=== PATIENT | male | born 1990 | race Caucasian/White ===

== ENCOUNTER 2016-11-11 18:21 | Emergency (ER) | payer OTHER ==
[2016-11-11 18:34] VITALS: TEMP 97.1
--- NOTE | 2016-11-11 21:17 | ED ---
General Adult HPI - General Chief complaint: Chest Pain Stated complaint: chest pain Time Seen by Provider: 11/11/16 21:10 Source: patient, RN notes reviewed Mode of arrival: wheelchair Limitations: no limitations - History of Present Illness Initial comments: This a 26-year-old male presents emergency Department chief complaint of right upper quadrant abdominal pain, right-sided chest pain. Patient states it started earlier today after drinking some milk. Patient states he is nauseated and has been vomiting. Patient states his pain is very severe his right side. Patient states it radiates to his shoulder region. Patient denies fever, chills. Patient states he has normal cardiac issues. Patient states he is a daily smoker. Patient denies any shortness breath or pain with deep inspiration. Patient had no prior surgeries. Patient has NO KNOWN DRUG ALLERGIES. - Related Data Previous Rx's Medication Instructions Recorded Hydrocodone/Acetaminophen [[place] 1 tab PO Q6HR PRN #20 tab 11/11/16 5-325] Ondansetron Odt [Zofran Odt] 4 mg PO Q8HR PRN #10 tab 11/11/16 Allergies Allergy/AdvReac Type Severity Reaction Status Date / Time No Known Allergies Allergy Verified 11/11/16 21:02 Review of Systems ROS Statement: Those systems with pertinent positive or pertinent negative responses have been documented in the HPI. ROS Other: All systems not noted in ROS Statement are negative. Past Medical History Past Medical History: Hypertension History of Any Multi-Drug Resistant Organisms: None Reported Additional Past Surgical History / Comment(s): LEFT FINGER SURGERY Past Psychological History: ADD/ADHD Smoking Status: Current every day smoker Past Alcohol Use History: Occasional Past Drug Use History: Marijuana General Exam Limitations: no limitations General appearance: alert, in no apparent distress Head exam: Present: atraumatic, normocephalic, normal inspection Eye exam: Present: normal appearance, PERRL, EOMI. Absent: scleral icterus, conjunctival injection, periorbital swelling Neck exam: Present: normal inspection, full ROM. Absent: tenderness, meningismus, lymphadenopathy Respiratory exam: Present: normal lung sounds bilaterally. Absent: respiratory distress, wheezes, rales, rhonchi, stridor, chest wall tenderness Cardiovascular Exam: Present: regular rate, normal rhythm, normal heart sounds. Absent: systolic murmur, diastolic murmur, rubs, gallop, clicks GI/Abdominal exam: Present: soft, tenderness (Moderate right upper quadrant tenderness), normal bowel sounds. Absent: distended, guarding, rebound, rigid Back exam: Absent: CVA tenderness (R), CVA tenderness (L) Neurological exam: Present: alert, oriented X3, CN II-XII intact Skin exam: Present: warm, dry, intact, normal color. Absent: rash Course Vital Signs 11/11/16 11/11/16 18:29 23:14 Temperature 97.1 F L Pulse Rate 91 65 Respiratory 22 16 Rate Blood Pressure 190/99 132/85 O2 Sat by Pulse 100 98 Oximetry EKG Findings - EKG Comments: EKG Findings:: EKG performed at 18:40 normal sinus rhythm with rate 80, P1 52, QRS duration 90, QT/QTC 364/419 Medical Decision Making - Medical Decision Making 26-year-old male presented for abdominal pain, chest pain after eating. Patient does have cholelithiasis with mild elevation and, bile duct with no evidence of stone. Patient has normal bilirubin no true evidence of choledocholithiasis. Patient will follow-up with on-call surgeon Dr. Mao. Patient we discharged with pain medication, antinausea medication. We discussed return parameters and close follow-up. Patient agrees to plan. - Lab Data Result diagrams: 11/11/16 21:35 11/11/16 21:35 Lab Results 11/11/16 11/11/16 11/11/16 Range/Units 21:35 21:35 21:35 WBC 13.5 H (3.8-10.6) k/uL RBC 5.67 (4.30-5.90) m/uL Hgb 16.7 (13.0-17.5) gm/dL Hct 50.6 (39.0-53.0) % MCV 89.2 (80.0-100.0) fL MCH 29.5 (25.0-35.0) pg MCHC 33.1 (31.0-37.0) g/dL RDW 13.0 (11.5-15.5) % Plt Count 264 (150-450) k/uL Neutrophils % 83 % Lymphocytes % 8 % Monocytes % 6 % Eosinophils % 1 % Basophils % 1 % Neutrophils # 11.2 H (1.3-7.7) k/uL Lymphocytes # 1.1 (1.0-4.8) k/uL Monocytes # 0.9 (0-1.0) k/uL Eosinophils # 0.1 (0-0.7) k/uL Basophils # 0.1 (0-0.2) k/uL PT 11.8 (9.0-12.0) sec INR 1.2 (<1.1) APTT 22.9 (22.0-30.0) sec Sodium 138 (137-145) mmol/L Potassium 4.4 (3.5-5.1) mmol/L Chloride 104 (98-107) mmol/L Carbon Dioxide 21 L (22-30) mmol/L Anion Gap 13 mmol/L BUN 11 (9-20) mg/dL Creatinine 0.70 (0.66-1.25) mg/dL Est GFR (MDRD) Af Amer >60 (>60 ml/min/1.73 sqM) Est GFR (MDRD) Non-Af >60 (>60 ml/min/1.73 sqM) Glucose 117 H (74-99) mg/dL Calcium 10.1 (8.4-10.2) mg/dL Total Bilirubin 0.6 (0.2-1.3) mg/dL AST 20 (17-59) U/L ALT 41 (21-72) U/L Alkaline Phosphatase 52 (38-126) U/L Troponin I (0.000-0.034) ng/mL Total Protein 7.4 (6.3-8.2) g/dL Albumin 4.6 (3.5-5.0) g/dL Amylase 42 (30-110) U/L Lipase 37 (23-300) U/L 11/11/16 Range/Units 21:35 WBC (3.8-10.6) k/uL RBC (4.30-5.90) m/uL Hgb (13.0-17.5) gm/dL Hct (39.0-53.0) % MCV (80.0-100.0) fL MCH (25.0-35.0) pg MCHC (31.0-37.0) g/dL RDW (11.5-15.5) % Plt Count (150-450) k/uL Neutrophils % % Lymphocytes % % Monocytes % % Eosinophils % % Basophils % % Neutrophils # (1.3-7.7) k/uL Lymphocytes # (1.0-4.8) k/uL Monocytes # (0-1.0) k/uL Eosinophils # (0-0.7) k/uL Basophils # (0-0.2) k/uL PT (9.0-12.0) sec INR (<1.1) APTT (22.0-30.0) sec Sodium (137-145) mmol/L Potassium (3.5-5.1) mmol/L Chloride (98-107) mmol/L Carbon Dioxide (22-30) mmol/L Anion Gap mmol/L BUN (9-20) mg/dL Creatinine (0.66-1.25) mg/dL Est GFR (MDRD) Af Amer (>60 ml/min/1.73 sqM) Est GFR (MDRD) Non-Af (>60 ml/min/1.73 sqM) Glucose (74-99) mg/dL Calcium (8.4-10.2) mg/dL Total Bilirubin (0.2-1.3) mg/dL AST (17-59) U/L ALT (21-72) U/L Alkaline Phosphatase (38-126) U/L Troponin I <0.012 (0.000-0.034) ng/mL Total Protein (6.3-8.2) g/dL Albumin (3.5-5.0) g/dL Amylase (30-110) U/L Lipase (23-300) U/L Disposition Clinical Impression: Cholelithiasis Disposition: HOME SELF-CARE Condition: Stable Instructions: Biliary Colic (ED), Gallstones (ED) Additional Instructions: Please return to the Emergency Department if symptoms worsen or any other concerns. Prescriptions: Hydrocodone/Acetaminophen [[place] 5-325] 1 tab PO Q6HR PRN #20 tab PRN Reason: Pain Ondansetron Odt [Zofran Odt] 4 mg PO Q8HR PRN #10 tab PRN Reason: Nausea Referrals: Geneva Morataya MD [Primary Care Provider] - 1-2 days Yaima Mao MD [STAFF PHYSICIAN] - 1-2 days Time of Disposition: 23:30
[2016-11-11] MEDS: ONDANSETRON 4 MG/2 ML VIAL IVP STA (21:41)
[2016-11-11] MEDS: HYDROmorphone 1 MG/ML 1 ML SYRINGE IVP STA ×2 (21:41→23:58)
[2016-11-11] MEDS: SODIUM CHLORIDE 0.9% 1,000 ML IV STA (21:42)
[2016-11-11 21:49] LABS: Basophils # (A) 0.1 k/uL (0-0.2); Basophils % (A) 1 %; CH 30.4; CHCM 34.3; Eosinophils # (A) 0.1 k/uL (0-0.7); Eosinophils % (A) 1 %; HCT 50.6 % (39.0-53.0); HDW 2.62; HGB 16.7 gm/dL (13.0-17.5); Luc % (Auto) 2; Lymphocytes # (A) 1.1 k/uL (1.0-4.8); Lymphocytes % (A) 8 %; MCH 29.5 pg (25.0-35.0); MCHC 33.1 g/dL (31.0-37.0); MCV 89.2 fL (80.0-100.0); Mean Platelet Volume 7.4; Monocytes # (A) 0.9 k/uL (0-1.0); Monocytes % (A) 6 %; Neutrophils # (A) 11.2 k/uL (1.3-7.7); Neutrophils % (A) 83 %; RBC 5.67 m/uL (4.30-5.90); WBC 13.5 k/uL (3.8-10.6); WBC (Perox) 12.33
[2016-11-11 21:59] LABS: ALT 41 U/L (21-72); AST 20 U/L (17-59); Alkaline Phosphatase 52 U/L (38-126); Amylase 42 U/L (30-110); Anion Gap 13 mmol/L; Blood Urea Nitrogen 11 mg/dL (9-20); Calcium 10.1 mg/dL (8.4-10.2); Carbon Dioxide 21 mmol/L (22-30); Chloride 104 mmol/L (98-107); Glucose 117 mg/dL (74-99); Non-African American GFR(MDRD) >60 (>60 ml/min/1.73 sqM); Potassium 4.4 mmol/L (3.5-5.1); Sodium 138 mmol/L (137-145); Total Bilirubin 0.6 mg/dL (0.2-1.3); Total Protein 7.4 g/dL (6.3-8.2)
[2016-11-11 22:09] LABS: INR 1.2 (<1.1); Partial Thromboplastin Time 22.9 sec (22.0-30.0); Prothrombin Time 11.8 sec (9.0-12.0)
--- NOTE | 2016-11-11 22:23 | US ---
EXAMINATION TYPE: US abdomen limited DATE OF EXAM: 11/11/2016 10:08 PM COMPARISON: NONE CLINICAL HISTORY: Pain. Nausea EXAM MEASUREMENTS: Liver Length: 18.8 cm Gallbladder Wall: 0.3 cm CBD: 0.8 cm Right Kidney: 11.0 x 4.9 x 4.7 cm VISCERAL FINDINGS: Pancreas: Obscured by bowel gas Liver: Difficult/limited visualization due to overlying bowel gas. Gallbladder: Stone visualized within the neck of the gallbladder measuring 2.4 cm. The gallbladder a ppears hydropic measuring 13.2 cm in length. The gallbladder wall is measuring upper limits of normal Evidence for sonographic Colindres's sign: Yes CBD: Dilated Right Kidney: No hydronephrosis or masses seen IMPRESSION: 1. Overall impression is negative for acute cholecystitis. 2. Cholelithiasis documented, with mild extrahepatic biliary tree dilatation also seen -suggesting t he possibility of choledocholithiasis not visualized on this examination.
--- NOTE | 2016-11-11 22:45 | XR ---
EXAM: XR Chest, 2 Views. CLINICAL HISTORY: Reason: chest pain TECHNIQUE: Frontal and lateral views of the chest. COMPARISON: No relevant prior studies available. FINDINGS: Lungs: Unremarkable. No consolidation. Pleural space: Unremarkable. No pneumothorax. Heart: Unremarkable. No cardiomegaly. Mediastinum: Unremarkable. Bones/joints: Unremarkable. IMPRESSION: No acute pulmonary disease
--- NOTE | 2016-11-11 22:50 | XR ---
EXAM: XR Abdomen, 1 View. CLINICAL HISTORY: Reason: abdominal pain TECHNIQUE: Frontal supine view of the abdomen/pelvis. COMPARISON: No relevant prior studies available. FINDINGS: Gastrointestinal tract: Few mildly distended bowel loops in the central abdomen, nonspecific. Distal bowel gas is seen throughout the large bowel. Bones/joints: Unremarkable. Other findings: Mild retained stool. No abnormal calcification. IMPRESSION: Nonspecific bowel gas pattern with mild retained stool. Serial abdominal radiographs recommended to assess for any change.
[2016-11-11 23:15] VITALS: BP 132/85; PULSE 65; RESP 16
== END 2016-11-11 23:58 | disposition home or self-care (01) ==
LOC: EC 18:21
DX: K80.20 Calculus of gallbladder without cholecystitis without obstruction (principal); F17.200 Nicotine dependence, unspecified, uncomplicated; R07.9 Chest pain, unspecified
CPT/HCPCS: 36415; 93005; 80053; 82150; 83690; 84484; 85025; 85610; 85730; 71020; 74000; 76705; 99285; 96374; 96375; 96376; 96361; J2405; J1170

== ENCOUNTER 2023-12-18 22:08 | Emergency (ER) | payer OTHER ==
[2023-12-18 23:01] VITALS: PULSE 101; RESP 20; TEMP 98.6
--- NOTE | 2023-12-18 23:18 | XR ---
EXAM: XR Chest, 2 Views CLINICAL HISTORY: ITS.REASON XR Reason: Cough TECHNIQUE: Frontal and lateral views of the chest. COMPARISON: No relevant prior studies available. FINDINGS: Lungs: Unremarkable. No consolidation. Pleural space: Unremarkable. No pneumothorax. Heart: Unremarkable. No cardiomegaly. Mediastinum: Unremarkable. Normal mediastinal contour. Bones/joints: Unremarkable. No acute fracture. IMPRESSION: Normal chest x-rays.
[2023-12-18 23:40] VITALS: BP 130/94
--- NOTE | 2023-12-18 23:41 | ED ---
General Adult HPI - General Chief complaint: Upper Respiratory Infection Stated complaint: Shortness of Breath Time Seen by Provider: 12/18/23 23:20 Source: patient, RN notes reviewed, old records reviewed Mode of arrival: ambulatory Limitations: no limitations - History of Present Illness Initial comments: Patient is a 33-year-old male who presents emergency department complaining of sore throat, cough, congestion. Is a daily tobacco user. No other acute complaints at this time. Has a history of hypertension. States he does have a sick contact, his mother who is currently in the ICU at another hospital for pneumonia. Is concerned he may have caught something and does not want to make her any more sick which is why presents for evaluation. Symptoms have been ongoing for the last few days. Sore throat, productive cough with clear mucus, as well as rhinorrhea. No known sick contacts other than his mother. Presents for further evaluation. Denies any fevers, nausea, vomiting, diarrhea. - Related Data Previous Rx's Medication Instructions Recorded Hydrocodone/Acetaminophen [[place] 1 tab PO Q6HR PRN #20 tab 11/11/16 5-325] Ondansetron Odt [Zofran Odt] 4 mg PO Q8HR PRN #10 tab 11/11/16 Albuterol Inhaler [Ventolin Hfa 1 - 2 puff INHALATION Q6H PRN #1 12/18/23 Inhaler] each Azithromycin [Zithromax] 250 mg PO DAILY 4 Days #4 tab 12/18/23 predniSONE [Deltasone] 40 mg PO DAILY 5 Days #10 tab 12/18/23 Allergies Allergy/AdvReac Type Severity Reaction Status Date / Time No Known Allergies Allergy Verified 12/18/23 22:27 Review of Systems ROS Statement: Those systems with pertinent positive or pertinent negative responses have been documented in the HPI. Review of Systems: CONST: Denies fever EYES: Denies blurry vision ENT: Endorses nasal congestion, cough C/V: Denies Chest pain RESP: Denies shortness of breath GI: Denies abdominal pain : Denies dysuria SKIN: Denies rash. MSK: Denies joint pain. NEURO: Denies headache ROS Other: All systems not noted in ROS Statement are negative. Past Medical History Past Medical History: Hypertension History of Any Multi-Drug Resistant Organisms: None Reported Additional Past Surgical History / Comment(s): LEFT FINGER SURGERY Past Psychological History: ADD/ADHD Smoking Status: Current every day smoker Past Alcohol Use History: Occasional Past Drug Use History: Marijuana General Exam - General Exam Comments Initial Comments: General: Appears in no acute distress. HEAD: Normal with no signs of head trauma. EYES: PERRLA, EOMI, conjunctiva normal, no discharge. ENT: Hearing grossly intact, normal oropharynx. RESPIRATORY: Mild wheezing bilaterally but no obvious acute distress. No rhonchi. C/V: Regular rate and rhythm. S1 and S2 auscultated. ABD: Abd is soft, nontender, nondistended EXT: no obvious deformity SKIN: No rashes or lesions observed on exposed skin. NEURO: Alert and oriented x 4. Limitations: no limitations Course Vital Signs 12/18/23 12/18/23 12/18/23 22:23 23:26 23:28 Temperature 98.6 F Pulse Rate 101 H 101 H Respiratory 20 24 20 Rate Blood Pressure 177/110 130/94 O2 Sat by Pulse 98 98 Oximetry Medical Decision Making - Medical Decision Making Was pt. sent in by a medical professional or institution (, PA, JOB P[employer]TER [employer] PREPARER, urgent care, hospital, or long term...) When possible be specific @ -No Did you speak to anyone other than the patient for history (EMS, parent, family, police, friend...)? What history was obtained from this source @ -No Did you review nursing and triage notes (agree or disagree)? Why? @ -I reviewed and agree with nursing and triage notes Were old charts reviewed (outside hosp., previous admission, EMS record, old EKG, old radiological studies, urgent care reports/EKG's, long term records)? Report findings @ -No old charts were reviewed Differential Diagnosis (chest pain, altered mental status, abdominal pain women, abdominal pain men, vaginal bleeding, weakness, fever, dyspnea, syncope, headache, dizziness, GI bleed, back pain, seizure, CVA, palpatations, mental health, musculoskeletal)? @ -URI, pneumonia, strep pharyngitis, COPD. This list is not all inclusive. EKG interpreted by me (3pts min.). @ -None done X-rays interpreted by me (1pt min.). @ -Chest x-ray reveals no obvious acute cardiopulmonary process or infection. CT interpreted by me (1pt min.). @ -None done U/S interpreted by me (1pt. min.). @ -None done What testing was considered but not performed or refused? (CT, X-rays, U/S, labs)? Why? @ -None What meds were considered but not given or refused? Why? @ -None Did you discuss the management of the patient with other professionals (professionals i.e. , PA, JOB P[employer]TER UP [employer] TICKET PREPARER, lab, RT, psych nurse, social service director, toy electric train repairer, teacher, [place] police officer, caser in)? Give summary @ -No Was smoking cessation discussed for >3mins.? @ -No Was critical care preformed (if so, how long)? @ -No Were there social determinants of health that impacted care today? How? (Homelessness, low income, unemployed, alcoholism, drug addiction, transportation, low edu. Level, literacy, decrease access to med. care, intermediate, rehab)? @ -No Was there de-escalation of care discussed even if they declined (Discuss DNR or withdrawal of care, Hospice)? DNR status @ -No What co-morbidities impacted this encounter? (DM, HTN, Smoking, COPD, CAD, Cancer, CVA, ARF, Chemo, Hep., AIDS, mental health diagnosis, sleep apnea, morbid obesity)? @ -None Was patient admitted / discharged? Hospital course, mention meds given and route, prescriptions, significant lab abnormalities, going to OR and other pertinent info. @ -Patient is a chronic tobacco smoker presenting with upper respiratory illnesses. Patient's mother is in the ICU with pneumonia. Presents with s imilar complaints at this time. Workup started in triage and I evaluated him when he was placed in room after workup was completed. Chest x-ray shows no evidence of acute infection or pneumonia. Labs including strep and viral swabs negative. Vital signs within acceptable limits. I do believe this is likely tracheobronchitis and URI. Patient be started on azithromycin, prednisone, as well as prescribed an albuterol inhaler. He was in agreement this plan. Vital signs within acceptable limits. He will be discharged home at this time. He will be given a dose of azithromycin and prednisone prior to discharge. I will provide the patient with a prescription for prednisone, azithromycin, albuterol inhaler. I instructed the patient to follow up with their PCP in the next 1-3 days.. I explained that the patient should return to the emergency department if they experience any worsening symptoms. Strict return precautions were discussed with the patient. The patient expressed understanding of these instructions. I answered all questions that the patient had. The patient was discharged home in good condition with their prescriptions and follow up information. Undiagnosed new problem with uncertain prognosis? @ -No Drug Therapy requiring intensive monitoring for toxicity (Heparin, Nitro, Insulin, Cardizem)? @ -No Were any procedures done? @ -No Diagnosis/symptom? @ -URI, tracheobronchitis Acute, or Chronic, or Acute on Chronic? @ -Acute Uncomplicated (without systemic symptoms) or Complicated (systemic symptoms)? @ -Complicated Side effects of treatment? @ -No Exacerbation, Progression, or Severe Exacerbation? @ -No Poses a threat to life or bodily function? How? (Chest pain, [place], [place], pneumonia, PE, COPD, DKA, ARF, appy, cholecystitis, CVA, Diverticulitis, Homicidal, Suicidal, threat to staff... and all critical care pts) @ -Unlikely - Lab Data Lab Results 12/18/23 12/18/23 Range/Units 22:28 22:28 Influenza Type A (PCR) Not Detected (Not Detectd) Influenza Type B (PCR) Not Detected (Not Detectd) RSV (PCR) Not Detected (Not Detectd) SARS-CoV-2 (PCR) Not Detected (Not Detectd) Group A Strep (PCR) NOT DETECTED (Not Detectd) Disposition Clinical Impression: Tracheobronchitis, URI (upper respiratory infection) Disposition: HOME SELF-CARE Condition: Good Instructions (If sedation given, give patient instructions): Upper Respiratory Infection (ED) Prescriptions: predniSONE [Deltasone] 40 mg PO DAILY 5 Days #10 tab Albuterol Inhaler [Ventolin Hfa Inhaler] 1 - 2 puff INHALATION Q6H PRN #1 each PRN Reason: Dyspnea Azithromycin [Zithromax] 250 mg PO DAILY 4 Days #4 tab Is patient prescribed a controlled substance at d/c from ED?: No Referrals: None,Stated [Primary Care Provider] - 1-2 days Forms: Area PCPs Time of Disposition: 23:40
[2023-12-18] MEDS: predniSONE 20 MG TAB PO STA (23:54)
[2023-12-18] MEDS: AZITHROMYCIN 500 MG TAB PO STA (23:54)
== END 2023-12-18 23:57 | disposition home or self-care (01) ==
LOC: EC 22:08
DX: J40 Bronchitis, not specified as acute or chronic (principal); J06.9 Acute upper respiratory infection, unspecified; F17.200 Nicotine dependence, unspecified, uncomplicated
CPT/HCPCS: 87651; 87636; 71046; 99285; J7512